=== PATIENT | female | born 2000 | race Caucasian/White ===

== ENCOUNTER 2022-04-03 18:50 | Emergency (ER) | payer BC ==
[2022-04-03 19:29] VITALS: BP 152/83; PULSE 93; RESP 20; TEMP 98.4; BMI 33.8
[2022-04-03 20:07] LABS: HEMATOCRIT 41.7 % (32.4-45.2); HEMOGLOBIN 14.5 G/dL (10.7-15.3); MCHC 34.7 g/dl (32.0-36.0); MEAN CELL VOLUME 80.8 fl (80-96); MEAN PLT VOLUME 8.8 fl (7.5-11.1); PLATELET COUNT 337.1 10^3/uL (134-434); RBC 5.16 10^6/uL (3.60-5.2); RDW 15.5 % (11.6-15.6)
[2022-04-03 20:18] LABS: BILIRUBIN,TOTAL 0.2 mg/dl (0.2-1); CALCIUM 9.5 mg/dl (8.5-10); CREATININE 0.7 mg/dl (0.55-1.3)
[2022-04-03 20:22] LABS: PLATELET ESTIMATE ADEQUATE
== END 2022-04-03 20:55 | disposition home or self-care (01) ==
LOC: FER 18:50
DX: R42 Dizziness and giddiness (principal)
CPT/HCPCS: 36415; 80053; 84443; 85025; 93005; 99284-25